=== PATIENT | female | born 1970 | race Caucasian/White ===

== ENCOUNTER 2016-08-05 16:27 | Emergency (ER) | payer OTHER ==
[2016-08-05 16:45] VITALS: BP 114/80
--- NOTE | 2016-08-05 16:57 | UC ---
Complaint Female HPI - HPI Summary HPI Summary: Dysuria and hematuria starting 2 days ago, feels like past UTIs. Denies fever, vomiting, back pain. - History Of Current Complaint Stated Complaint: POSS UTI Time Seen by Provider: 08/05/16 16:35 Hx Obtained From: Patient Hx Last Menstrual Period: IUD ?: No Onset/Duration: Gradual Onset, Lasting Days Timing: Constant Severity Initially: Mild Severity Currently: Moderate Character: Burning Aggravating Factor(s): Urination Associated Signs And Symptoms: Positive: Negative - Allergies/Home Medications Allergies/Adverse Reactions: Allergies Allergy/AdvReac Type Severity Reaction Status Date / Time No Known Allergies Allergy Verified 08/29/14 07:14 Home Medications: Home Medications Ibuprofen [Advil] 200 mg 08/05/16 [History] PMH/Surg Hx/FS Hx/Imm Hx - Additional Past Medical History Additional PMH: hx c-diff Previously Healthy: Yes - Surgical History Surgical History: None - Family History Known Family History: Positive: Hypertension - Social History Alcohol Use: Occasionally Substance Use Type: None Smoking Status (MU): Never Smoked Tobacco Review of Systems Constitutional: Negative Skin: Negative Eyes: Negative ENT: Negative Respiratory: Negative Cardiovascular: Negative Gastrointestinal: Negative Genitourinary: Dysuria, Hematuria, Urgency Motor: Negative Neurovascular: Negative Musculoskeletal: Negative Neurological: Negative Psychological: Negative All Other Systems Reviewed And Are Negative: Yes Physical Exam Triage Information Reviewed: Yes Appearance: Well-Appearing, No Pain Distress, Well-Nourished Vital Signs: Initial Vital Signs Temp 100.0 F 08/05/16 16:42 Pulse 72 08/05/16 16:42 Resp 16 08/05/16 16:42 BP 114/80 08/05/16 16:42 Pulse Ox 100 08/05/16 16:42 Vital Signs Reviewed: Yes Eye Exam: Normal Eyes: Positive: Conjunctiva Clear ENT Exam: Normal ENT: Positive: Normal ENT inspection, Hearing grossly normal, Pharynx normal, TMs normal Dental Exam: Normal Neck exam: Normal Neck: Positive: Supple, Nontender, No Lymphadenopathy Respiratory Exam: Normal Respiratory: Positive: Chest non-tender, Lungs clear, Normal breath sounds, No respiratory distress, No accessory muscle use Cardiovascular Exam: Normal Cardiovascular: Positive: RRR, No Murmur Abdomen Description: Positive: Nontender, No Organomegaly, Soft. Negative: CVA Tenderness (R), CVA Tenderness (L) Musculoskeletal Exam: Normal Neurological Exam: Normal Neurological: Positive: Alert Psychological Exam: Normal Skin Exam: Normal Complaint Female Dx - Differential Dx/Diagnosis Provider Diagnoses: UTI Discharge - Discharge Plan Condition: Stable Disposition: HOME Prescriptions: Nitrofurantoin Monohyd Macro [Macrobid] 100 mg PO BID #10 cap Patient Education Materials: Urinary Tract Infection in Women (ED) Referrals: Rachael Schwarz MD [Primary Care Provider] -
== END 2016-08-05 17:05 | disposition home or self-care (01) ==
LOC: UCEAST 16:27
DX: N39.0 Urinary tract infection, site not specified (principal)
CPT/HCPCS: 81003; 87077; 87086; 87186; 99212; G0463

== ENCOUNTER 2018-11-17 13:25 | Emergency (ER) | payer OTHER ==
[2018-11-17 13:37] VITALS: BP 129/82
--- NOTE | 2018-11-17 14:53 | UC ---
Back Pain HPI - HPI Summary HPI Summary: Pt has chroninc back pain. She has been working on a deck over the weekend and experienced gradual onset of low back pain. - History of Current Complaint Chief Complaint: UCBackPain Stated Complaint: BACK PAIN Time Seen by Provider: 11/17/18 14:42 Hx Obtained From: Patient Hx Last Menstrual Period: IUD ?: No Onset/Duration: Gradual Onset Timing: Constant - Worse with bending, twisting, denies any saddle anesthesia Pain Intensity: 9 Character: Dull, Stiffness Aggravating Factor(s): Movement, Lifting, Bending Alleviating Factor(s): Nothing Associated Signs And Symptoms: Negative: Bruising, Weakness, Numbness, Tingling , Abdominal Pain, Flank Pain, Bladder Incontinence, Bowel Incontinence, Pain with Weight Bearing - Allergies/Home Medications Allergies/Adverse Reactions: Allergies Allergy/AdvReac Type Severity Reaction Status Date / Time No Known Allergies Allergy Verified 11/17/18 13:37 Home Medications: Home Medications Sertraline* [Zoloft*] 1 tab PO DAILY 11/17/18 [History Confirmed 11/17/18] PMH/Surg Hx/FS Hx/Imm Hx Previously Healthy: Yes - Surgical History Surgical History: None - Family History Known Family History: Positive: Hypertension - Social History Alcohol Use: Occasionally Substance Use Type: None Smoking Status (MU): Never Smoked Tobacco Review of Systems All Other Systems Reviewed And Are Negative: Yes Musculoskeletal: Positive: Other: - Able to move and walk but slowly Is Patient Immunocompromised?: No Physical Exam Triage Information Reviewed: Yes Appearance: Well-Appearing, No Pain Distress, Well-Nourished Vital Signs: Initial Vital Signs Temp 98.3 F 11/17/18 13:35 Pulse 94 11/17/18 13:35 Resp 16 11/17/18 13:35 BP 129/82 11/17/18 13:35 Pulse Ox 100 11/17/18 13:35 Vital Signs Reviewed: Yes Respiratory: Positive: Lungs clear, Normal breath sounds, No respiratory distress, No accessory muscle use Cardiovascular: Positive: RRR, No Murmur, Pulses Normal, Brisk Capillary Refill Abdomen Description: Positive: Nontender, No Organomegaly, Soft. Negative: CVA Tenderness (R), CVA Tenderness (L) Bowel Sounds: Positive: Present Musculoskeletal: Positive: Strength Intact, ROM Intact, Other: - Mild pain on palpation mid buttocks bilaterally, good ROM, no bruising, erythema, deformity or swelling Neurological: Positive: Alert, Muscle Tone Normal - Reflexes +2 at the knees, minimally positive straight leg raise...mostly a pulling sensation Psychological Exam: Normal Skin Exam: Normal Back Pain Course/Dx - Course Course Of Treatment: Pt fairly comfortable here. I believe this is either a muscle strain or sciatica from her overuse while working on the deck at home. - Differential Dx/Diagnosis Provider Diagnosis: Sciatica Discharge - Sign-Out/Discharge Documenting (check all that apply): Patient Departure All imaging exams completed and their final reports reviewed: No Studies - Discharge Plan Condition: Good Disposition: HOME Patient Education Materials: Sciatica (ED), Lower Back Exercises (ED) Referrals: Rachael Schwarz MD [Primary Care Provider] - Additional Instructions: Aleve 2 tablets twice a day with food for pain and may take Tylenol every 4 hours as needed. Avoid prolonged sitting or standing. Follow up with your primary care doctor in 4-5 days if no im,provement. - Billing Disposition and Condition Condition: GOOD Disposition: Home - Attestation Statements Provider Attestation: Per institutional requirements, I have reviewed the chart, however, I was not consulted specifically or made aware of this patient by the midlevel provider. I did not personally evaluate, interact with , or disposition this patient.
== END 2018-11-17 15:06 | disposition home or self-care (01) ==
LOC: UCEAST 13:25
DX: M54.30 Sciatica, unspecified side (principal)
CPT/HCPCS: 99211; G0463